=== PATIENT | male | born 1935 | race Caucasian/White ===

== ENCOUNTER → 2017-09-19 | Outpatient (CLI) | payer MEDICARE, BC ==
[~2017-09-19] MED LIST: FINA5TAB4 PO; TAMS-11 PO
== END ==
LOC: STAR 12:58
PROVIDERS: ATTEND Anesthesiology
DX: Z02.9 Encounter for administrative examinations, unspecified (principal)

== ENCOUNTER 2017-09-23 07:32 | Day surgery (SDC) | payer MEDICARE, BC ==
[~2017-09-23] VITALS: Ht 170.2 cm; Wt 68.1 kg
[~2017-09-23 07:32] MED LIST changes: +BUPIVACAINE/PF 0.5% ONE
[2017-09-23 08:04] VITALS: BP 133/67
[2017-09-23] MEDS ORDERED: LACTATED RINGERS 1,000 ML IV SCH ×2 (08:08→11:35)
[2017-09-23] MEDS ORDERED: LIDOCAINE-MPF 1%, 2ML ONE (08:11)
[2017-09-23] MEDS ORDERED: FENTANYL PF 250 MCG/5ML ONE (08:15)
[2017-09-23] MEDS ORDERED: SODIUM CHLORIDE 0.9% PF 10ML ONE (08:15)
[2017-09-23] MEDS ORDERED: CEFAZOLIN 1,000 MG ONE ×2 (08:16)
[2017-09-23] MEDS ORDERED: ROCURONIUM 10 MG/ML,10ML ONE (08:17)
[2017-09-23] MEDS ORDERED: PROPOFOL 10 MG/ML, 20ML ONE (08:17)
[2017-09-23] MEDS ORDERED: NEOSTIGMINE 1 MG/ML, 10ML ONE (08:18)
[2017-09-23] MEDS ORDERED: GLYCOPYRROLATE 0.4 MG/2 ML, 2ML ONE (08:18)
[2017-09-23] MEDS ORDERED: LIDOCAINE 1%, 2ML SQ PRN (08:30)
[2017-09-23] MEDS ORDERED: ONDANSETRON 2MG/ML, 2ML IVPush PRN ×2 (10:00→12:00)
[2017-09-23] MEDS ORDERED: PROMETHAZINE 12.5 MG SUPP PR PRN (10:00)
[2017-09-23] MEDS ORDERED: ACETAMINOPHEN 325 MG TABLET PO PRN (10:00)
[2017-09-23] MEDS ORDERED: FENTANYL PF 100 MCG/2ML IV PRN (10:00)
[2017-09-23] MEDS ORDERED: LABETALOL 5MG/ML, 20ML IV PRN (10:00)
[2017-09-23] MEDS ORDERED: hydrALAzine 20 MG/ML, 1ML IV PRN (10:00)
[2017-09-23] MEDS ORDERED: MEPERIDINE/PF 25MG/0.5ML IVPush PRN (10:00)
[2017-09-23] MEDS ORDERED: HYDROmorphone 1 MG/ML, 1ML IV PRN (10:00)
[2017-09-23] MEDS ORDERED: OXYcodone 5 MG/5 ML ORAL.SOL UDC PO PRN (10:00)
[2017-09-23] MEDS ORDERED: morphine SULFATE 10 MG/ML, 1ML IV PRN (10:00)
[2017-09-23] MEDS ORDERED: PROMETHAZINE 25 MG/ML, 1ML IV PRN (10:00)
[2017-09-23] MEDS ORDERED: BUPIVACAINE/PF-EPI 0.5% 1:200K INFIL ONE (10:37)
[2017-09-23] MEDS ORDERED: morphine SULFATE 10 MG/ML, 1ML IVPush PRN (12:00)
[2017-09-23] MEDS ORDERED: HYDROcodone/APAP 5/325 TABLET PO PRN (12:00)
[2017-09-24] MEDS ORDERED: TAMSULOSIN 0.4 MG CAP.ER.24H PO SCH (09:00)
[2017-09-24] MEDS ORDERED: FINASTERIDE 5 MG TABLET PO SCH (09:00)
== END 2017-09-23 15:30 ==
LOC: OUT 07:32
PROVIDERS: ATTEND Thoracic Surgery (Cardiothoracic Vascular Surgery)
DX: K40.90 Unilateral inguinal hernia, without obstruction or gangrene, not specified as recurrent (principal); N40.0 Benign prostatic hyperplasia without lower urinary tract symptoms; Z98.890 Other specified postprocedural states; Z87.891 Personal history of nicotine dependence; Z72.89 Other problems related to lifestyle
CPT/HCPCS: 49650; 93005; C1781; J0690; J2704; J2710; J3010; J3490; J7120

== ENCOUNTER → 2017-10-14 | Outpatient (CLI) | payer MEDICARE, BC ==
[~2017-10-14] MED LIST changes: -BUPIVACAINE/PF 0.5% ONE
== END | disposition home or self-care (01) ==
LOC: CFH 09:53
PROVIDERS: ATTEND Internal Medicine Critical Care Medicine
DX: C34.90 Malignant neoplasm of unspecified part of unspecified bronchus or lung (principal); K44.9 Diaphragmatic hernia without obstruction or gangrene; J84.9 Interstitial pulmonary disease, unspecified
CPT/HCPCS: 71250

== ENCOUNTER → 2018-09-21 | Outpatient (CLI) | payer MEDICARE, BC | END | disposition home or self-care (01) | LOC: CFH 11:03 | PROVIDERS: ATTEND Internal Medicine Critical Care Medicine | DX: C34.90 Malignant neoplasm of unspecified part of unspecified bronchus or lung (principal); J43.9 Emphysema, unspecified; J84.9 Interstitial pulmonary disease, unspecified; K44.9 Diaphragmatic hernia without obstruction or gangrene | CPT/HCPCS: 71250 ==